=== PATIENT | female | born 1975 | race Two or more races ===

== ENCOUNTER 2022-10-25 07:37 | Emergency (ER) | payer MEDICAID ==
[~2022-10-25] VITALS: Ht 157.5 cm; Wt 79.5 kg
[2022-10-25 07:45] VITALS: BP 151/80; PULSE 78; RESP 16; TEMP 97.7
[2022-10-25] MEDS ORDERED: PERCT PO (08:47)
[2022-10-25] MEDS ORDERED: CEFD300C18 PO (08:47)
[2022-10-25] MEDS ORDERED: CEFDINIR 300 MG CAPSULE PO ONE (09:00)
[2022-10-25] MEDS ORDERED: CARBAMIDE PEROXIDE 6.5% 15 ML OTIC SOLUTION AD ONE (09:15)
== END 2022-10-25 09:37 | disposition home or self-care (01) ==
LOC: EMS 07:38
DX: H66.93 Otitis media, unspecified, bilateral (principal); E11.9 Type 2 diabetes mellitus without complications
CPT/HCPCS: 99283; Q9967

== ENCOUNTER 2022-11-30 17:02 | Emergency (ER) | payer MEDICAID ==
[~2022-11-30] VITALS: Ht 154.9 cm; Wt 78.2 kg
[~2022-11-30 17:02] MED LIST: CEFD300C18 PO; PERCT PO
[2022-11-30 17:54] LABS: BASOPHILS % (AUTO) 0.4 % (0.0-2.0); EOSINOPHILS % (AUTO) 1.2 % (1.0-6.0); HEMATOCRIT 39.6 % (36-46); LYMPHOCYTES # (AUTO) 1.9 K/uL (1.0-4.8); LYMPHOCYTES % (AUTO) 22.4 % (22.0-44.0); MEAN CORPUSCULAR HEMOGLOBIN 29.9 pg (26.0-34.0); MEAN CORPUSCULAR HGB CONC 32.8 G/dL (31.0-37.0); MEAN CORPUSCULAR VOLUME 91 fL (80-100); MONOCYTES # (AUTO) 0.5 K/uL (0.1-1.0); MONOCYTES % (AUTO) 6.2 % (2.0-9.0); NEUTROPHILS % (AUTO) 69.8 % (40.0-70.0); PLATELET COUNT (AUTO) 248 K/uL (150-450); RED BLOOD CELL COUNT(AUTO) 4.36 MIL/uL (4.00-5.20); RED CELL DISTRIBUTION WIDTH 14.8 % (11.5-14.5); WHITE BLOOD COUNT (AUTO) 8.7 K/uL (4.5-11.0)
[2022-11-30 18:01] LABS: ANION GAP 11 mmol/L (8-16); CALCIUM, TOTAL 8.6 mg/dL (8.8-10.5); CARBON DIOXIDE 24 mmol/L (22-29); CHLORIDE 105 mmol/L (98-107); CREATININE 0.61 mg/dL (0.60-1.30); GLOMERULAR FILTR. RATE CALC > 60 mL/min (>60); GLUCOSE,RANDOM 124 mg/dL (70-110); POTASSIUM 3.8 mmol/L (3.5-5.1); SODIUM SERUM 140 mmol/L (136-145); UREA NITROGEN, BLOOD 14 mg/dL (7-18)
[2022-11-30 18:07] LABS: ALANINE AMINOTRANSFERASE 27 U/L (12-78); ALBUMIN 3.2 g/dL (3.4-5.0); ALKALINE PHOSPHATASE 83 U/L (46-116); ASPARTATE AMINOTRANSFERASE 14 U/L (15-37); BILIRUBIN,TOTAL 0.2 mg/dL (0.1-1.0); LIPASE 46 U/L (16-77); TOTAL PROTEIN, SERUM 6.3 g/dL (6.4-8.2)
[2022-11-30 18:10] LABS: TROPONIN I-HIGH SENSITIVITY 4 ng/L (<51)
[2022-11-30] MEDS ORDERED: MORPHINE SULFATE 4 MG/ML SYRINGE IM ONE (18:30)
[2022-11-30] MEDS ORDERED: NEOMYCIN/POLYMYXIN B/HYDROCORT 10 ML OTIC SUSPENSION AD ONE (18:30)
[2022-11-30] MEDS ORDERED: DiphenhydrAMINE HCL 50 MG/ML VIAL IM ONE (18:30)
[2022-11-30] MEDS ORDERED: ACET-2080 PO (19:52)
[2022-11-30] MEDS ORDERED: MECL-134 PO (19:52)
[2022-11-30] MEDS ORDERED: CEPH-558 PO (19:52)
[2022-11-30 20:06] VITALS: BP 122/79; PULSE 72; RESP 16; TEMP 98
== END 2022-11-30 20:09 | disposition home or self-care (01) ==
LOC: EMS 17:04
DX: H60.91 Unspecified otitis externa, right ear (principal); H66.91 Otitis media, unspecified, right ear
CPT/HCPCS: 99284; 80053; 83690; 84484; 84703; 85025; 36415; 93005; 96372; J1200; J2270

== ENCOUNTER 2023-02-17 18:42 | Emergency (ER) | payer MEDICAID ==
[~2023-02-17] VITALS: Ht 154.9 cm; Wt 77.3 kg
[~2023-02-17 18:42] MED LIST changes: +ACET-2080 PO; -CEFD300C18 PO; +CEPH-558 PO; +MECL-134 PO; -PERCT PO
[2023-02-17] MEDS ORDERED: SODIUM CHLORIDE 0.9% 1,000 ML IV ONE (20:30)
[2023-02-17] MEDS ORDERED: DiphenhydrAMINE HCL 50 MG/ML VIAL IVP ONE (20:30)
[2023-02-17] MEDS ORDERED: METOCLOPRAMIDE HCL 5 MG/ML 2 ML VIAL IVP ONE (20:30)
[2023-02-17] MEDS ORDERED: KETOROLAC TROMETHAMINE 30 MG/ML VIAL IVP ONE (20:30)
[2023-02-17 22:02] VITALS: BP 145/91; PULSE 96; RESP 16; TEMP 98.5
== END 2023-02-17 22:25 | disposition home or self-care (01) ==
LOC: EMS 18:43
DX: G44.209 Tension-type headache, unspecified, not intractable (principal); F41.9 Anxiety disorder, unspecified
CPT/HCPCS: 99284; 96374; 96361; 96375; J1200; J1885; J2765; J7030

== ENCOUNTER 2023-07-24 17:18 | Emergency (ER) | payer MEDICAID, OTHER ==
[~2023-07-24] VITALS: Ht 154.9 cm; Wt 80.0 kg
[2023-07-24 17:25] VITALS: TEMP 98.3
[2023-07-24 20:15] VITALS: BP 125/64; PULSE 80; RESP 16
[2023-07-24] MEDS ORDERED: ACET-2080 PO (20:18)
[2023-07-24] MEDS: KETOROLAC TROMETHAMINE 60 MG/2 ML VIAL IM ONE (20:28)
[2023-07-24] MEDS: ACETAMINOPHEN/CODEINE 300-30 MG TABLET PO ONE (20:29)
[2023-07-24] MEDS: NEOMYCIN/POLYMYXIN B/HYDROCORT 10 ML OTIC SUSPENSION AS ONE (20:29)
== END 2023-07-24 22:12 | disposition home or self-care (01) ==
LOC: EMS 17:19
DX: H60.91 Unspecified otitis externa, right ear (principal)
CPT/HCPCS: 99285; 70450; 96372; J1885